=== PATIENT | female | born 1980 | race Caucasian/White ===

== ENCOUNTER 2019-06-16 20:27 | Emergency (ER) | payer MEDICAID ==
[~2019-06-16] VITALS: Ht 162.6 cm; Wt 103.0 kg
[2019-06-16 20:35] VITALS: BP 127/73
[2019-06-16] MEDS ORDERED: ALBUTEROL FS 2.5 MG/3 ML VIAL.NEB ONE (21:20)
[2019-06-16] MEDS ORDERED: IPRATROPIUM NEB FS 0.5 MG/2.5 ML AMPUL.NEB ONE (21:20)
--- NOTE | 2019-06-16 21:20 | NUR ---
RT AT BEDSIDE FOR BREATHING TREATMENT.
[2019-06-16] MEDS ORDERED: ALBUTEROL FS 2.5 MG/3 ML VIAL.NEB NEB ONE (21:30)
[2019-06-16] MEDS ORDERED: ONDANSETRON 4 MG TAB.RAPDIS SL ONE (21:30)
[2019-06-16] MEDS ORDERED: IBUPROFEN 600 MG TABLET PO ONE ×2 (21:30→21:32)
[2019-06-16] MEDS ORDERED: IPRATROPIUM NEB FS 0.5 MG/2.5 ML AMPUL.NEB NEB ONE (21:30)
[2019-06-16] MEDS ORDERED: ONDANSETRON 4 MG TAB.RAPDIS ONE (21:32)
--- NOTE | 2019-06-16 22:24 | NUR ---
Patient discharged to home in stable condition. Written and verbal after care instructions given. Patient verbalizes understanding of instruction.
== END 2019-06-16 22:25 | disposition home or self-care (01) ==
LOC: ER 20:30
DX: T54.91XA Toxic effect of unspecified corrosive substance, accidental (unintentional), initial encounter (principal); F17.200 Nicotine dependence, unspecified, uncomplicated; Y92.89 Other specified places as the place of occurrence of the external cause
CPT/HCPCS: 71045; 94640 ×2; 99284; Q0162

== ENCOUNTER 2019-06-27 21:26 | Emergency (ER) | payer MEDICAID ==
[~2019-06-27] VITALS: Ht 162.6 cm; Wt 103.0 kg
[2019-06-27 21:46] VITALS: BP 123/74
--- NOTE | 2019-06-27 22:16 | NUR ---
BIBSELF FROM HOME. TO ER BED 1. AAOX4. NO RESP DISTRESS NOTED. AMBULATORY W/ LIMP. C/O LEFT POSTERIOT LOWER LEG PAIN/ PT REPORTS THAT A METAL WINDOW FRAME FELL ON JUSTIN BACK OF HER LEFT LEG. PT REPORTS PAIN 9/10. NOTED REDNESS. LIMITED ROM ON L KNEE. PA AT BEDSIDE FOR EVAL. ORDERS RECEIVED NOTED AND CARRIED OUT. XRAY AT BEDSIDE.
--- NOTE | 2019-06-28 00:22 | NUR ---
Patient discharged to home in stable condition. Written and verbal after care instructions given. Patient verbalizes understanding of instruction.
== END 2019-06-28 00:23 | disposition home or self-care (01) ==
LOC: ER 21:27
DX: S80.12XA Contusion of left lower leg, initial encounter (principal); F17.200 Nicotine dependence, unspecified, uncomplicated; W20.8XXA Other cause of strike by thrown, projected or falling object, initial encounter; Y93.89 Activity, other specified; Y92.89 Other specified places as the place of occurrence of the external cause; Y99.8 Other external cause status
CPT/HCPCS: 73590-TC; 93971-TC

== ENCOUNTER 2019-07-04 08:17 | Emergency (ER) | payer MEDICAID ==
[~2019-07-04] VITALS: Ht 162.6 cm; Wt 106.1 kg
[2019-07-04 08:20] VITALS: BP 142/81
== END 2019-07-04 08:51 | disposition home or self-care (01) ==
LOC: ER 08:17
DX: S80.12XA Contusion of left lower leg, initial encounter (principal); F17.200 Nicotine dependence, unspecified, uncomplicated; W13.4XXA Fall from, out of or through window, initial encounter; Y93.89 Activity, other specified; Y92.89 Other specified places as the place of occurrence of the external cause; Y99.8 Other external cause status